=== PATIENT | male | born 1955 | race Caucasian/White ===

== ENCOUNTER 2020-04-23 08:39 | Emergency (ER) | payer BC ==
[~2020-04-23] VITALS: Ht 180.3 cm; Wt 109.1 kg
[2020-04-23] MEDS ORDERED: MECL-184 PO (10:11)
[2020-04-23 10:31] VITALS: BP 128/80
[2020-04-23] MEDS ORDERED: scopolamine 1.5mg patch.TD72 TD STA (10:31)
== END 2020-04-23 10:59 | disposition home or self-care (01) ==
LOC: ER 08:40
DX: H61.21 Impacted cerumen, right ear (principal); H81.11 Benign paroxysmal vertigo, right ear; R11.0 Nausea; Z72.89 Other problems related to lifestyle
CPT/HCPCS: 69209; 99281; 99282

== ENCOUNTER 2021-05-06 09:56 | Emergency (ER) | payer BC, MEDICAID ==
[~2021-05-06 09:56] MED LIST: MECL-231 PO
== END 2021-05-06 10:24 | disposition left against medical advice (07) ==
LOC: ER 09:56
DX: Z53.21 Procedure and treatment not carried out due to patient leaving prior to being seen by health care provider (principal)